=== PATIENT | male | born 1940 | race Asian ===

== ENCOUNTER 2019-02-03 12:36 | Emergency (ER) | payer OTHER ==
[2019-02-03 12:45] VITALS: BP 138/88; PULSE 62; TEMP 98.4; BMI 26.5
--- NOTE | 2019-02-03 13:00 | PDOC ---
History of Present Illness - General Chief Complaint: Pain Stated Complaint: FALL HIT HEAD JANUARY 25, PAIN Time Seen by Provider: 02/03/19 12:55 History Source: Patient, Family Exam Limitations: No Limitations - History of Present Illness Initial Comments: 02/03/19 12:56 CHIEF COMPLAINT: Pain from scalp hematoma HISTORY OF PRESENT ILLNESS: 78-year-old man with a history of atrial fibrillation on [place] Patient had a fall on January 25 and hit the back of his head. He had a cardiac workup for dizziness and was found to have long pauses with his chronic atrial fibrillation. On January 26 he went to [facility]. His who is a registered nurse states that he had a head CT done at that time which was negative. 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 He was discharged home, and the large hematoma on the left posterior scalp is slowly going down in size. He is continuing to have pain when the hematoma is touched. He was taking Percocet for the pain and it helped, but he has now run out. They tried Tylenol to relieve the tenderness of the hematoma, but it is not controlling the pain when he tries to lay down to sleep. It does not hurt unless he is trying to lay his head down on the pillow, or to touch. REVIEW OF SYSTEMS: Past History - Past Medical History Allergies/Adverse Reactions: Allergies Allergy/AdvReac Type Severity Reaction Status Date / Time codeine [Codeine] AdvReac Intermediate vomiting Verified 02/03/19 12:37 Home Medications: Ambulatory Orders Apixaban [Eliquis] 5 mg PO DAILY 02/03/19 Duloxetine HCl 60 mg PO DAILY 02/03/19 Losartan Potassium 100 mg PO DAILY 02/03/19 Oxycodone HCl/Acetaminophen [Percocet 5-325 mg Tablet] 1 tab PO Q6H PRN #20 tablet MDD 4 02/03/19 Rosuvastatin [Crestor -] 20 mg PO DAILY 02/03/19 Cardiac Disorders: Yes (a fib, PPM, on anticoagulation) COPD: No HTN: Yes Hypercholesterolemia: Yes Psychiatric Problems: Yes - Surgical History Cardiac Surgery: Yes (PACEMAker) - Suicide/Smoking/Psychosocial Hx Smoking History: Never smoked Have you smoked in the past 12 months: No Information on smoking cessation initiated: No Hx Alcohol Use: Yes (social) Drug/Substance Use Hx: No *Physical Exam - Vital Signs Last Vital Signs Temp Pulse Resp BP Pulse Ox 98.4 F 62 20 138/88 99 02/03/19 12:36 02/03/19 12:36 02/03/19 12:36 02/03/19 12:36 02/03/19 12:36 - Physical Exam Comments: 02/03/19 13:02 GENERAL: The patient is awake, alert, and fully oriented, in no acute distress. HEAD: There is a swollen area on the left side of the occipital region of the scalp, no erythema, no open wound, but positive swelling and tenderness. There is ecchymosis dependent to this area over the posterior left ear and mastoid region. EYES: Pupils equal, round and reactive to light, extraocular movements intact, sclera anicteric, conjunctiva clear. ENT: Ears normal, nares patent, oropharynx clear without exudates. Moist mucous membranes. NECK: Normal range of motion, supple without lymphadenopathy, JVD, or masses. No cervical spine tenderness. LUNGS: Breath sounds equal, clear to auscultation bilaterally. No wheezes, and no crackles. HEART: Irregularly irregular. Normal S1 and S2. No murmur or gallop. ABDOMEN: Soft, nontender, normoactive bowel sounds. No guarding, no rebound. No masses. EXTREMITIES: Normal range of motion, no edema. No clubbing or cyanosis. No cords, erythema, or tenderness. NEUROLOGICAL: Cranial nerves II through XII grossly intact. Normal speech, normal gait. PSYCH: Normal mood, normal affect. SKIN: Warm and dry without rash. Positive hematoma to the left occipital scalp. Positive ecchymosis of the left scalp. Medical Decision Making - Medical Decision Making 02/03/19 13:04 78-year-old man with A. fib on anticoagulation, status post permanent pacemaker. Patient presents with painful scalp hematoma [address] scan showed no acute findings as per the . Patient's pain is significant, but mostly related to tenderness of the hematoma. The localized scalp injury is likely the explanation for the pain, however, given that the patient is on anticoagulation and has had pain, a repeat CT scan is indicated to rule out a delayed bleed. CT scan of the head ordered. 02/03/19 13:46 CT scan shows hematoma of the scalp, but no intracranial hemorrhage. Patient will be discharged with pain Rx. *DC/Admit/Observation/Transfer Diagnosis at time of Disposition: Head trauma Qualifiers: Encounter type: initial encounter Qualified Code(s): S09.90XA - Unspecified injury of head, initial encounter Scalp hematoma Qualifiers: Encounter type: initial encounter Qualified Code(s): S00.03XA - Contusion of scalp, initial encounter - Discharge Dispostion Disposition: HOME Condition at time of disposition: Stable Decision to Admit order: No - Prescriptions Prescriptions: Oxycodone HCl/Acetaminophen [Percocet 5-325 mg Tablet] 1 tab PO Q6H PRN #20 tablet MDD 4 PRN Reason: Severe Pain - Referrals Referrals: Juan Leal MD [Staff Physician] - - Patient Instructions Printed Discharge Instructions: DI for Closed Head Injury Additional Instructions: Today you were evaluated for a bruise on her scalp. The CT scan of the head shows good results, the bruise is only on the outside of the scalp, and there is no bleeding inside the skull or in the brain. The bruise on the scalp should shrink over the next few weeks. The pain should get better steadily. He may take Tylenol for mild or moderate pain, 650 mg every 6 hours. You may take Percocet for severe pain, 1 tablet every 6 hours. 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 Return to the emergency department for any severe or progressive symptoms. - Post Discharge Activity
== END 2019-02-03 14:28 | disposition home or self-care (01) ==
LOC: FER 12:36
DX: S00.03XA Contusion of scalp, initial encounter (principal); S09.90XA Unspecified injury of head, initial encounter; W18.39XA Other fall on same level, initial encounter; Y93.9 Activity, unspecified; Y92.9 Unspecified place or not applicable; I48.91 Unspecified atrial fibrillation; Z95.0 Presence of cardiac pacemaker; Z79.01 Long term (current) use of anticoagulants
CPT/HCPCS: 70450-TC; 99281-25